=== PATIENT | male | born 1975 | race Native Hawaiian/Other Pacific Islander ===

== ENCOUNTER 2018-01-09 23:34 | Emergency (ER) | payer BC ==
[2018-01-09 23:51] VITALS: O2SAT 98
--- NOTE | 2018-01-10 00:32 | ED PDOC ---
HPI: Wound Care - HPI Time Seen by Provider: 01/10/18 00:02 Chief Complaint (Nursing): Abnormal Skin Integrity Chief Complaint (Provider): lip laceration History Per: Patient History Of Present Illness: 42 y/o male presents for evaluation of laceration to lower lip sustained prior to arrival. Patient states he was playing basketball and was elbowed in the lip by another player and lip split open. Denies head injury, LOC, dental pain. Tetanus up to date. Past Medical History Reviewed: Historical Data, Nursing Documentation, Vital Signs Vital Signs: Last Vital Signs Temp 97.8 F 01/09/18 23:48 Pulse 80 01/09/18 23:48 Resp 16 01/09/18 23:48 BP 142/80 01/09/18 23:48 Pulse Ox 98 01/09/18 23:48 - Medical History PMH: No Chronic Diseases - Surgical History Surgical History: No Surg Hx - Family History Family History: States: No Known Family Hx - Living Arrangements Living Arrangements: With Family - Allergies Allergies/Adverse Reactions: Allergies Allergy/AdvReac Type Severity Reaction Status Date / Time No Known Allergies Allergy Verified 01/09/18 23:48 Review of Systems ROS Statement: Except As Marked, All Systems Reviewed And Found Negative Skin: Positive for: Other (lower lip laceration) Physical Exam - Reviewed Nursing Documentation Reviewed: Yes Vital Signs Reviewed: Yes - Physical Exam Appears: Positive for: Well, Non-toxic, No Acute Distress Head Exam: Positive for: ATRAUMATIC, NORMAL INSPECTION, NORMOCEPHALIC Skin: Positive for: Normal Color, Rash (1cm laceration left lower lip; no active bleeding, surrounding edema noted) Eye Exam: Positive for: Normal appearance ENT: Positive for: Normal ENT Inspection, Other (dentition intact) Cardiovascular/Chest: Positive for: Regular Rate, Rhythm Respiratory: Positive for: Normal Breath Sounds Extremity: Positive for: Normal ROM Neurologic/Psych: Positive for: Alert, Oriented. Negative for: Motor/Sensory Deficits - ECG O2 Sat by Pulse Oximetry: 98 - Progress ED Course And Treament: Dr. Landers at bedside to do laceration repair Patient educated on findings, advised follow up with Dr. Landers in one week Return precautions given Disposition - Clinical Impression Clinical Impression: Lip laceration - Patient ED Disposition Is Patient to be Admitted: No Counseled Patient/Family Regarding: Diagnosis, Need For Followup - Disposition Referrals: Kristi Landers MD [Medical Doctor] - Disposition: Routine/Home Disposition Time: 00:33 Condition: GOOD Instructions: Laceration Repair Forms: [employer] (Amharic)
[2018-01-10 02:10] VITALS: BP 136/84; PULSE 81; RESP 17; TEMP 98
== END 2018-01-10 00:32 | disposition home or self-care (01) ==
LOC: H.ER 23:34 → EDBD 23:34 → H.ER 01-10 00:32
DX: S01.511A Laceration without foreign body of lip, initial encounter (principal); W22.8XXA Striking against or struck by other objects, initial encounter; Y93.67 Activity, basketball